=== PATIENT | male | born 1950 | race Caucasian/White ===

== ENCOUNTER 2016-10-27 09:55 | Observation (INO) | payer MEDICARE, SELFPAY ==
--- NOTE | ~2016-10-27 | DS ---
Discharge Summary [place] [address] [place]. [address] NAME: MANI FLOOD : 54 STATUS : DIS Clyde PAT#: [id number] AGE: 65 ADM/REG DATE : 10/27/16 MR#: [id number] REPORT SERV DATE: 10/29/16 DICTATED BY: NEFTALI LYONS DATE: 10/28/16 REPORT STATUS : Draft TRANSCRIBED BY: MODL DATE: 10/28/16 ADMISSION DATE: 10/27/2016 DISCHARGE DATE: 10/28/2016 PRINCIPAL DIAGNOSIS: Acute gastroenteritis with hematochezia. SECONDARY DIAGNOSES: History of spondylosis, also had hypertension, chronic anemia. HISTORY OF PRESENT ILLNESS: Please see Dr. Sharp's note on 10/27/2016. HOSPITAL COURSE: Admitted with severe diarrhea concerning for dysentery versus ischemic colitis or possibly inflammatory bowel disease. He underwent a bowel prep colonoscopy which only showed a couple of polyps. Following a colonoscopy he had no further episodes of diarrhea. His diet was advanced. No further workup will be necessary. He is able to be discharged home on 10/28/2016, in satisfactory condition following up with Dr. Benavides as scheduled, continuing his home medications other than the Mobic. [facility]/NORMA Neftali Lyons M.D. / [id number] CC: Ken Oconnell MD William M. Cooney, MD
--- NOTE | ~2016-10-27 | HP ---
History And Physical [place] [id number] [facility] [place]. [address] NAME: MANI FLOOD : 54 STATUS : ADM Clyde PAT#: [id number] AGE: 65 ADM/REG DATE : 10/27/16 MR#: [id number] REPORT SERV DATE: 10/27/16 DICTATED BY: BELKIS HOGUE DATE: 10/27/16 REPORT STATUS : Draft TRANSCRIBED BY: MODL DATE: 10/27/16 DATE OF ADMISSION: 10/27/2016 REASON FOR ADMISSION: Explosive bloody diarrhea. HISTORY OF PRESENT ILLNESS: This is a 65-year-old white male, who has had five episodes of bloody diarrhea since last night at about 1800 hours. He has not had continuous diarrhea, does have some abdominal distention feel, but no fever, chills, or night sweats. No abdominal pain. He has never had a colonoscopy. Has never had this before. He did eat lunch at [facility] yesterday but all were cooked foods with Jackson steak and beans. He has had no fever, chills, or night sweats. No other exposures that he can think of, and there is no one else sick at home. PAST MEDICAL HISTORY: In the last year, he has had neck surgery by Dr. Dwight Jacques. He has had knee surgery by Dr. Tompkins. He had been on blood pressure medicine in the past, he is no longer taking. Recently, he had meloxicam into his regimen for arthritic pain. MEDICATIONS: He is on the following: Artificial Tears, Celexa 20 mg p.o. daily, gabapentin 300 mg p.o. q.8 hours, and meloxicam 15 mg p.o. p.r.n. ALLERGIES: NONE ARE KNOWN. SOCIAL HISTORY: He is . Lives with in [place]. He has one grown son. He does not take any alcohol or tobacco. Attends [employer] [employer] in [place] as planned to get a good Monday service tomorrow. FAMILY HISTORY: He had two sisters, who had drug problems in the past. He grew up in [place], [place] and worked for [employer] for many years, was disabled and retired age 49 because of neck pain and need for surgery. His father of prostate cancer. There is no colon cancer that runs in the family. REVIEW OF SYSTEMS: He has had no chest pain, shortness of breath. No fever, chills, night sweats, melena, or hematemesis. He had hematochezia with explosion of the stool. No unilateral weakness, nausea, vomiting, or diarrhea. He has had dizziness when he stood up. No fits, seizures, convulsions, or swelling in lower extremities. No cardiac history. No cough, hemoptysis, fever, chills, or night sweats. The remainder of the review of systems is negative. PHYSICAL EXAMINATION: VITAL SIGNS: Blood pressure is 108/72 with a heart rate of 72, his blood pressure did drop from 118-100 when he stood up, with symptomatic dizziness. His hemoglobin is 12.5, his hemoglobin year ago was 11. NECK: No bruit without any JVD. HEENT: EOMI. Sclerae clear. Conjunctivae pink. Tongue midline. Pharynx clear. CHEST: Clear to A and P. History And Physical [address] [address] NAME: MANI FLOOD : 52 STATUS : ADM Clyde PAT#: [id number] AGE: 65 ADM/REG DATE : 10/27/16 MR#: [id number] REPORT SERV DATE: 10/27/16 DICTATED BY: BELKIS HOGUE DATE: 10/27/16 REPORT STATUS : Draft TRANSCRIBED BY: NORMA DATE: 10/27/16 HEART: Regular S1, S2 without murmur, gallop, or click. ABDOMEN: Soft, nontender. Fullness. No particular point tenderness noted on the abdomen. EXTREMITIES: Have no edema. Distal pulses are intact to the dorsalis pedis, posterior tibial. NEUROLOGIC: He withdraws to plantar stimulation. Benefits Analyst equal and symmetric bilaterally. Coordination intact. He has no tremor. He is symmetric and equal neurologically bilaterally. RECTAL: Exam was not re-performed. : Deferred. SKIN: Without rash, ecchymosis, or bruising. LYMPHATICS: There is no adenopathy palpable. LABORATORY DATA: EKG is reviewed by myself. It shows normal sinus rhythm. Normal EKG with a rate of 68, sinus rhythm. No ST or T-wave changes. Type and screen was done with blood type O negative. Lactate 2.1. CMP showed sodium 142, potassium 4.7, creatinine 1.3, BUN 24, glucose 124, albumin 3.4. Liver tests normal. Lipase was 112. Hemoglobin 12.5, hematocrit 38.2, white count was 8.2, platelets were 175,000. INR 1.1. Review of the hematocrit for the last year 07/24/2015 was 33 and 07/13/2015 was 47.4 and July 29 was 44.4. ASSESSMENT AND PLAN: 1. Acute blood loss anemia secondary to lower GI bleeding. 2. Lower GI bleeding. 3. Bloody diarrhea, though does not appear to be infectious. No fever, chills, or night sweats. Only five episodes since he came. 4. History of hypertension. 5. History of neck surgery. 6. History of knee surgery. Recent addition of meloxicam. We will hold meloxicam and give low-dose IV fluids. Check serial hemoglobin and hematocrit. He desires to go home and have workup as an outpatient. The wildlife ecologist was consulted by Dr. Grubbs prior to my arrival. We will see what he says regarding this though if hematocrit stable, blood pressure does not drop, diarrhea ceases, the patient may be discharged this afternoon. Therefore, we admitted him to observation. DB/MODL Belkis Hogue M.D. / [id number] CC: Darwin Love M.D. History And Physical [address] [address] NAME: MANI FLOOD : 54 STATUS : ADM Clyde PAT#: [id number] AGE: 65 ADM/REG DATE : 10/27/16 MR#: [id number] REPORT SERV DATE: 10/27/16 DICTATED BY: BELKIS HOGUE DATE: 10/27/16 REPORT STATUS : Draft TRANSCRIBED BY: MODL DATE: 10/27/16 MD Dwight Woods D.O. Sumeet Bhushan, M.D.
--- NOTE | ~2016-10-27 | CN ---
Consultation Report [address] [address] NAME: MANI FLOOD : 54 STATUS : ADM Clyde PAT#: [id number] AGE: 65 ADM/REG DATE : 10/27/16 MR#: [id number] REPORT SERV DATE: 10/27/16 DICTATED BY: ELIAS ALLEN DATE: 10/27/16 REPORT STATUS : Draft TRANSCRIBED BY: MODL DATE: 10/27/16 INPATIENT CONSULT NOTE. DATE OF CONSULTATION: 10/27/2016 REASON FOR CONSULTATION: Hematochezia. HISTORY OF PRESENT ILLNESS: Mr. Flood is a pleasant 65-year-old male with no significant past medical history, who presented to the emergency department after having multiple episodes of bloody diarrhea starting on the day prior to presentation. The patient states that he has no fevers or chills. No nausea or vomiting. No abdominal pain associated with these episodes. The patient has never had any episodes of rectal bleeding or hematochezia in the past. The patient denies any family history colon or rectal cancer. No family history of other GI-related malignancies. No recent NSAID use. No anticoagulant use. The patient reported to the emergency department, and on evaluation was noted to have a hemoglobin of 12.5. The patient did complain of presyncopal symptoms and was noted to have a low-blood pressure in the emergency department with systolic blood pressure approximately of 100. REVIEW OF SYSTEMS: All systems were reviewed and are negative aside from what was mentioned in the history of present illness. PAST MEDICAL HISTORY: Includes: 1. Hypertension. 2. Neuropathy. 3. Osteoarthritis. FAMILY HISTORY: The patient denies any family history of GI-related malignancies. SOCIAL HISTORY: The patient denies any alcohol or illicit substance abuse. ALLERGIES: THE PATIENT HAS NO KNOWN DRUG ALLERGIES. OUTPATIENT MEDICATIONS: Include 1. Neurontin. 2. Mobic. 3. Celexa. 4. Artificial Tears. PHYSICAL EXAMINATION: VITAL SIGNS: Most recent vital signs include a temperature of 97.9, pulse of 78, blood pressure 129/74, and saturating 97% on room air. GENERAL INSPECTION: Reveals a middle-aged male, lying in bed, in no apparent Consultation Report [address] [place]. [address] NAME: MANI FLOOD : [birth year] STATUS : ADM Clyde PAT#: [id number] AGE: 65 ADM/REG DATE : 10/27/16 MR#: [id number] REPORT SERV DATE: 10/27/16 DICTATED BY: ELAIS ALLEN DATE: 10/27/16 REPORT STATUS : Draft TRANSCRIBED BY: NORMA DATE: 10/27/16 distress. HEENT: Head is normocephalic, atraumatic. Normal inspection of the oral mucosa and posterior pharynx. Sclerae nonicteric. Pupils are equal and round. NECK: Supple without lymphadenopathy. HEART: Rate is regular with normal S1, S2. LUNGS: Sounds clear to auscultation bilaterally without wheezes, rales, or rhonchi. ABDOMEN: Soft, nontender, nondistended with normoactive bowel sounds. EXTREMITIES: The patient has no cyanosis, clubbing, or edema. SKIN: No jaundice or rash. NEUROLOGIC: No gross motor deficits. He is alert and oriented. Mood and affect are appropriate. Judgment appears to be intact. LABORATORY DATA: Most recent laboratory results include a CBC that demonstrated a white count of 8.2, hemoglobin of 12.5, and a platelet count of 175,000. Comprehensive metabolic panel was remarkable only for mildly elevated BUN of 24, creatinine of 1.0. LFTs were normal as were electrolytes. Lactate was 2.1. The patient has no pertinent imaging to review. ASSESSMENT AND PLAN: Mr. Flood is a very pleasant 65-year-old male with no significant past medical history, who presents with multiple episodes of hematochezia. The patient has never had a colonoscopy, but has no family history of GI-related malignancy. We would recommend trending the patient's hemoglobin checking every 8 hours and transfusing as felt appropriate to keep the patient's hemoglobin above 7. We will plan on giving the patient a bowel prep later today along with a clear liquid diet and make him n.p.o. at midnight. We will proceed with colonoscopy for further evaluation tomorrow morning. Thank you very much for this interesting consult and allowing me to participate in Mr. Flood's care. Please call with any questions or concerns you might have. [facility]/NORMA Elias Allen MD / [id number] CC: Ken Oconnell MD
--- NOTE | ~2016-10-27 | EGD ---
EGD REPORT [facility] [address] [address] NAME: MANI FLOOD : 54 STATUS : ADM Clyde PAT#: [id number] AGE: 65 ADM/REG DATE : 10/27/16 MR#: [id number] REPORT SERV DATE: 10/28/16 DICTATED BY: ELIAS ALLEN DATE: 10/28/16 REPORT STATUS : Draft [facility]ANSCRIBED BY: [facility] DATE: 10/28/16 Endoscopy Center Patient Name: Mani Flood Date of : 1950 Attending MD: ELIAS ALLEN MD Procedure Date No Time: 10/28/2016 Procedure: Colonoscopy Indications: Hematochezia Referring MD: FRANCA MCINTYRE Medicines: Monitored Anesthesia Care Complications: No immediate complications. Estimated blood loss: Minimal. Procedure: Pre-Anesthesia Assessment: - ASA Grade Assessment: II - A patient with mild systemic disease. After I obtained informed consent, the scope was passed under direct vision. Throughout the procedure, the patient's blood pressure, pulse, and oxygen saturations were monitored continuously. The CF [id number] was introduced through the anus and advanced to the cecum, identified by appendiceal orifice and ileocecal valve. The colonoscopy was performed without difficulty. The patient tolerated the procedure well. The quality of the bowel preparation was good. Findings: The perianal and digital rectal examinations were normal. Pertinent negatives include no palpable rectal lesions. Multiple medium-mouthed diverticula were found in the sigmoid colon and in the ascending colon. Two sessile polyps were found in the sigmoid colon. The polyps were 4 to 5 mm in size. These polyps were removed with a cold snare. Resection and retrieval were complete. Estimated blood loss was minimal. The exam was otherwise without abnormality on direct and retroflexion views. Impression: - Diverticulosis in the sigmoid colon and in the ascending colon. - Two 4 to 5 mm polyps in the sigmoid colon. Resected and retrieved. - The examination was otherwise normal on direct and retroflexion views. Recommendation: - Discharge patient to home (ambulatory). - Await pathology results. EGD REPORT [address] [address] NAME: MANI FLOOD : 54 STATUS : ADM Clyde PAT#: [id number] AGE: 65 ADM/REG DATE : 10/27/16 MR#: [id number] REPORT SERV DATE: 10/28/16 DICTATED BY: ELIAS ALLEN DATE: 10/28/16 REPORT STATUS : Draft TRANSCRIBED BY: ConjuGon DATE: 10/28/16 - Repeat colonoscopy for surveillance based on pathology results (likely 5 years). Procedure Code(s): --- Professional --- 08045, Colonoscopy, flexible, proximal to splenic flexure; with removal of tumor(s), polyp(s), or other lesion(s) by snare technique Diagnosis Code(s): --- Professional --- K57.30, Diverticulosis of large intestine without perforation or abscess without bleeding D12.5, Benign neoplasm of sigmoid colon K92.1, Melena CPT copyright 2013 [employer]. All rights reserved. The codes documented in this report are preliminary and upon special needs bus driver review may be revised to meet current compliance requirements. Elias Allen MD ELIAS ALLEN MD 10/28/2016 9:26 AM This report has been signed electronically. Number of Addenda: 0 Note Initiated On: 10/28/2016 8:37 AM Scope Withdrawal Time 0 hours 10 minutes 37 seconds
[2016-10-27 09:22] LABS: BASOPHILS 0.6 %; BASOPHILS ABSOLUTE 0.05 10/3/uL (0.0-0.16); EOSINOPHILS 1.8 %; EOSINOPHILS ABSOLUTE 0.15 10/3/uL (0.0-0.53); ER CBC TAT 0 Hrs 11 Mins; HEMOGLOBIN 12.5 g/dL (13.6-17.8); IMMATURE GRANULOCYTES 0.5 %; IMMATURE GRANULOCYTES ABSOLUTE 0.04 10/3/uL (0.0-0.11); LYMPHOCYTES 21.2 %; LYMPHOCYTES ABSOLUTE 1.74 10/3/uL (0.67-4.30); MEAN CORPUS HGB CONC 32.7 g/dL (32.0-36.0); MEAN CORPUSCULAR HEMOGLOB 30.3 pg (26.0-34.0); MEAN PLATELET VOLUME 10.5 fL (9.2-13.0); MONOCYTES ABSOLUTE 0.49 10/3/uL (0.21-1.20); NEUTROPHILS 69.9 %; NEUTROPHILS ABSOLUTE 5.74 10/3/uL (2.02-8.40); PLATELET COUNT 175 10/3/uL (150-400); RBC DISTRIBUTION WIDTH 14.1 % (12.0-16.0); WHITE BLOOD CELLS 8.2 10/3/uL (4.5-10.5)
[2016-10-27 09:23] LABS: HEMATOCRIT 38.2 % (40.0-51.0); MANUAL DIFF NO %; MEAN CORPUSCULAR VOLUME 92.7 fL (80-100); RED CELL COUNT 4.12 10/6/uL (4.7-6.1)
[2016-10-27 09:30] LABS: INTERNATIONAL NORMAL RATI 1.1 UNITS (-)
[2016-10-27 09:44] LABS: A/G RATIO 1.2 (0.7-1.9); ALBUMIN 3.4 G/DL (3.5-5.0); ALKALINE PHOSPHATASE 60 U/L (45-117); BUN (BLOOD UREA NITROGEN) 24 MG/DL (6-23); CALCIUM, SERUM 8.7 MG/DL (8.5-10.4); CHLORIDE, SERUM 108 MMOL/L (96-112); CO2 (CARBON DIOXIDE) 26 MMOL/L (24-34); CREATININE 1.03 MG/DL (0.70-1.30); GFR AFRICAN AMERICAN 89 ML/MIN (>=60); GFR NON AFRICAN AMERICAN 77 ML/MIN (>=60); GLOBULIN 2.9 G/DL (2.5-4.1); GLUCOSE, SERUM 124 MG/DL (60-99); POTASSIUM, SERUM 4.7 MMOL/L (3.5-5.3); SGOT(AST) 20 U/L (5-40); SGPT(ALT) 38 U/L (5-65); SODIUM, SERUM 142 MMOL/L (135-148); TOTAL BILIRUBIN 0.4 MG/DL (0-1.2); TOTAL PROTEIN 6.3 G/DL (6.0-8.5)
[~2016-10-27 09:55] MED LIST: ASAB PO; BION TEARS OPH; CELEXA20 PO; METHOC500B PO; MOBIC15 MG PO; NEUR300 PO; NORV10 PO; OXYCOD PO; ULTRAM50 PO
[2016-10-27 15:46] LABS: HEMOGLOBIN 10.7 g/dL (13.6-17.8)
[2016-10-27 15:48] LABS: HEMATOCRIT 32.8 % (40.0-51.0)
[2016-10-27 18:21] LABS: HEMATOCRIT 32.1 % (40.0-51.0); HEMOGLOBIN 10.8 g/dL (13.6-17.8)
[2016-10-27 22:18] LABS: HEMOGLOBIN 11.7 g/dL (13.6-17.8)
[2016-10-27 22:21] LABS: HEMATOCRIT 35.4 % (40.0-51.0)
[2016-10-28 01:32] LABS: BASOPHILS 0.7 %; BASOPHILS ABSOLUTE 0.04 10/3/uL (0.0-0.16); EOSINOPHILS 2.9 %; EOSINOPHILS ABSOLUTE 0.17 10/3/uL (0.0-0.53); HEMOGLOBIN 10.1 g/dL (13.6-17.8); IMMATURE GRANULOCYTES 0.2 %; IMMATURE GRANULOCYTES ABSOLUTE 0.01 10/3/uL (0.0-0.11); LYMPHOCYTES 39.3 %; LYMPHOCYTES ABSOLUTE 2.34 10/3/uL (0.67-4.30); MEAN CORPUS HGB CONC 33.4 g/dL (32.0-36.0); MEAN CORPUSCULAR HEMOGLOB 30.7 pg (26.0-34.0); MEAN CORPUSCULAR VOLUME 91.8 fL (80-100); MEAN PLATELET VOLUME 10.6 fL (9.2-13.0); MONOCYTES 7.4 %; MONOCYTES ABSOLUTE 0.44 10/3/uL (0.21-1.20); NEUTROPHILS 49.5 %; NEUTROPHILS ABSOLUTE 2.95 10/3/uL (2.02-8.40); PLATELET COUNT 152 10/3/uL (150-400); RBC DISTRIBUTION WIDTH 14.1 % (12.0-16.0)
[2016-10-28 01:35] LABS: HEMATOCRIT 30.2 % (40.0-51.0); MANUAL DIFF NO %; RED CELL COUNT 3.29 10/6/uL (4.7-6.1)
[2016-10-28 01:44] LABS: CALCIUM, SERUM 7.9 MG/DL (8.5-10.4); CHLORIDE, SERUM 108 MMOL/L (96-112); CO2 (CARBON DIOXIDE) 29 MMOL/L (24-34); CREATININE 0.92 MG/DL (0.70-1.30); GFR AFRICAN AMERICAN 102 ML/MIN (>=60); GFR NON AFRICAN AMERICAN 88 ML/MIN (>=60); SODIUM, SERUM 143 MMOL/L (135-148)
[2016-10-28 01:45] LABS: BUN (BLOOD UREA NITROGEN) 19 MG/DL (6-23); GLUCOSE, SERUM 92 MG/DL (60-99)
[2016-10-28 10:09] LABS: HEMOGLOBIN 10.8 g/dL (13.6-17.8)
== END 2016-10-28 15:28 | disposition home or self-care (01) ==
LOC: ER 09:55 → 1SO 14:12
PROVIDERS: Emergency Medicine; Internal Medicine; Internal Medicine Gastroenterology; Internal Medicine Infectious Disease
PROC: 0DBN8ZZ Excision of Sigmoid Colon, Via Natural or Artificial Opening Endoscopic (ICD-10-PCS; principal; 2016-10-28 09:00)
DX: D12.5 Benign neoplasm of sigmoid colon (principal); K57.30 Diverticulosis of large intestine without perforation or abscess without bleeding; K52.9 Noninfective gastroenteritis and colitis, unspecified; I10 Essential (primary) hypertension; D64.9 Anemia, unspecified; G62.9 Polyneuropathy, unspecified; M19.90 Unspecified osteoarthritis, unspecified site; Z98.1 Arthrodesis status; Z80.42 Family history of malignant neoplasm of prostate; Z79.899 Other long term (current) drug therapy
CPT/HCPCS: 36415; 80048; 80053; 83605; 83690; 85014; 85018; 85025; 85610; 86850; 86900; 86901; 87040; 88305; 93005; 96374; 99285; A9270-GY; C9113; G0378